=== PATIENT | female | born 1930 | race Caucasian/White ===

== ENCOUNTER 2017-03-26 19:26 | Inpatient (IN) ==
[2017-03-26] MEDS ORDERED: DILTIAZEM 50 MG/10 ML VIAL IV STA (19:49)
[2017-03-26] MEDS ORDERED: ASPIRIN 325 MG TABLET PO STA (19:49)
[2017-03-26 19:56] LABS: Basophils # 0.1 10*3/uL (0.0-0.2); Basophils % 0.8 % (0.0-0.8); Eosinophils # 0.1 10*3/uL (0.0-0.87); Eosinophils % 0.6 % (0.00-10.9); Hematocrit 44.4 VOL% (35.7-47.0); Immature Granulocytes % 1.2 %; Immature Granulocytes Absolute 0.13 #; Lymphocytes # 1.8 10*3/uL (1.4-4.0); Lymphocytes % 17.5 % (21.3-54.2); Mean Corpuscular HGB Conc 33.8 GM/DL (32-36); Mean Corpuscular Hemoglobin 29 PG (27-34); Mean Corpuscular Volume 85.7 FL (87-102); Mean Platelet Volume 9.6 FL (9.6-12.0); Monocytes # 0.7 10*3/uL (0.11-0.8); Monocytes % 6.3 % (1.7-12.7); Neutrophils # 7.7 10*3/uL (1.4-7.4); Neutrophils % 73.6 % (38.7-73.9); Platelet Count 382 T/CUMM (130-400); Red Blood Count 5.18 MC/CUMM (3.8-5.5); Red Cell Distribution Width 14.4 % (9.3-17.3); White Blood Count 10.5 T/CUMM (4-12)
[2017-03-26] MEDS ORDERED: DILTIAZEM INJ 100 MG in SODIUM CHLORIDE 0.9% 100 ML IV SCH (20:00)
[2017-03-26 20:01] LABS: Apearance,Urine CLEAR (Clear); Bilirubin,Urine Negative (Negative); Blood, Urine Small mg/dL (Negative); Glucose,Urine (UA) Negative (Negative); Ketones,Urine Negative (Negative); Mucus,Urine Occasional /LPF (Occasional); Nitrite,Urine Negative (Negative); Protein,Urine 100 MG/DL; RBC,Urine 4 /HPF (0-4); Squamous Epithelial Cell,Urine Occasional /HPF (0-10); Urine Color Colorless (Yellow); Urine Specific Gravity 1.004 (1.001-1.035); Urine Urobilinogen < 2.0 EU/DL (0.2-1.0); WBC,Urine 2 /HPF (0-6)
[2017-03-26 20:04] LABS: PT Patient Result 10.2 SECS
[2017-03-26 20:08] LABS: Barbiturates Screen,Urine Negative (Negative); Benzodiazepines Screen,Urine Negative (Negative); Cannabinoid Screen,Urine Negative (Negative); Opiate Screen,Urine Negative (Negative); Phencyclidine Screen,Urine Negative (Negative)
[2017-03-26] MEDS ORDERED: SODIUM CHLORIDE 0.9% 100 ML IV ONE (20:16)
[2017-03-26] MEDS ORDERED: ASPIRIN 325 MG TABLET ONE (20:16)
[2017-03-26] MEDS ORDERED: DILTIAZEM 100 MG VIAL.ADD IV ONE (20:16)
[2017-03-26] MEDS ORDERED: DILTIAZEM 50 MG/10 ML VIAL IV ONE (20:17)
[2017-03-26 20:24] LABS: Alanine Aminotransferase 25 U/L (13-56); Albumin 3.8 G/DL (3.4-5.0); Alkaline Phosphatase 98 U/L (45-117); Aspartate Amino Transferase 16 U/L (0-37); Bilirubin,Total < 0.39 MG/DL (0.2-1.0); Blood Urea Nitrogen 28 MG/DL (7-18); Glucose 130 MG/DL (74-106); Potassium 3.5 MMOL/L (3.5-5.1); Sodium 136 MMOL/L (136-145); Total Protein 6.7 G/DL (6.4-8.3)
[2017-03-26 20:29] LABS: Troponin I Only 0.056 NG/ML (0.00-0.045)
[2017-03-26 20:30] LABS: Free T4 (Free Thyroxine) 1.13 NG/DL (0.76-1.46); Magnesium 2.3 MG/DL (1.8-2.4)
--- NOTE | 2017-03-26 20:45 | XRay Report ---
Exam: XR chest 1V portable Indication: Shortness of breath Comparison study: None Findings: The cardiac silhouette is mildly enlarged. Mediastinal contours otherwise appear within normal limits. There is no focal consolidation, pneumothorax or pleural effusion identified. Impression: Mild cardiomegaly. Otherwise, no active disease. PROCEDURE INTERPRETED AT [facility] DEPARTMENT OF RADIOLOGY Final Report Signed by: Alfredo Valladares
--- NOTE | 2017-03-26 21:16 | Emergency Department Note ---
Keyonna Smallwood Emily, am scribing for, and in the presence of, Wale Horne MD 20: 00. Ozzie Smallwood Charles R, MD, personally performed the services described in this documentation, ascribed by Essence Newby in my presence, and it is both accurate and complete . Arrival - Arrival Chief Complaint: Arrhythmia/Palpitations ED Nursing Triage Note: Patient to ED via EMS coming from home with c/o "heart racing" Patient with hx of Afib. EMS reported patient has been in A fib since they picked her up. Patient was SOB along with the Afib. Patient denies any pain at arrival and is in A fib at 123 on monitor. Mode of Arrival: Stretcher Limitations: No Limitations Source: Patient Time Seen by Provider: 03/26/17 19:37 - History of Present Illness HPI Narrative: Pt is a 86 y/o female who came to ED with c/o racing palpitations that started a few hours ago. Pt states "my heart tried leaving me" and does "feel heavy and is hurting." Pt reports taking Lasix, in which had an output of 1000cc in ED. Pt has not seen a provider in a few years, last visit was for a back surgery. Pt was seeing Dr. Ochoa two years ago in clinic for Afib but not followed up since. Pt has associated sx of SOB. Pt reports taking a blood thinners, but cannot remember the name. Onset (ago): hour(s) Consistency: constant Severity: moderate Severity scale (1-10): 6 Quality: aching, other (racing) Date of Last Menstrual Period: menopause Allergies/Adverse Reactions: Allergies Allergy/AdvReac Type Severity Reaction Status Date / Time latex Allergy Unknown/Unable Verified 03/26/17 19:32 to obtain morphine Allergy Unknown/Unable Verified 03/26/17 19:32 to obtain Review of System - Review of System 12 point system: reviewed and no additional remarkable complaints except as stated - Review of System Constitutional: Absent: diaphoresis, fever, weakness Respiratory: Present: respiratory distress (SOB). Absent: wheezing Cardiovascular: Present: palpitations. Absent: syncope Gastrointestinal: Absent: abdominal pain, nausea, vomiting Musculoskeletal: Absent: arm pain, back pain, leg pain, neck pain Skin: Absent: rash Neurological: Absent: headache Medical,Surgical,& Family Hx - Medical History Cardio: History of: Hypertension, Cardiovascular Problems (patient states she has "heart problems" but does not know exactly what) Musculoskeletal: History of: Back/Neck Problems (2 back sx) - Social History Smoking Status: Never smoker Frequency of Alcohol Use: None Type of Drug Use: None Exam Vital Signs: Vital Signs Temperature 97.3 F L 03/26/17 19:27 Pulse Rate 123 H 03/26/17 19:27 Respiratory Rate 20 03/26/17 19:27 Blood Pressure 189/116 03/26/17 19:27 O2 Sat by Pulse Oximetry 97 03/26/17 19:27 - General General appearance: alert, in no apparent distress, obese - Head Head exam: Present: atraumatic, normocephalic - Eye Eye exam: Present: PERRL, EOMI - ENT ENT exam: Present: mucous membranes moist. Absent: mucous membranes dry - Neck Neck exam: Present: full ROM. Absent: tenderness - Chest Chest inspection: Present: symmetric chest wall rise. Absent: tenderness - Respiratory Respiratory exam: Present: normal lung sounds bilaterally. Absent: accessory muscle use, rales, respiratory distress, rhonchi, wheezes - Cardiovascular Cardiovascular exam: Present: tachycardia, irregular rhythm - Abdominal Exam Abdominal exam: Present: soft. Absent: distention, tenderness, guarding - Extremities Exam Extremities exam: Present: full ROM, pedal edema (+1). Absent: tenderness - Neurological Exam Neurological exam: Present: alert, oriented X3, CN II-XII intact. Absent: motor sensory deficit - Psychiatric Psychiatric exam: Present: normal affect, normal mood - Skin Skin exam: Present: warm, dry, other (varicose veins) Course - Consultations Consultation #1: Hospitalist will admit patient Time: 21:13 Results - Labs CBC & BMP: 03/26/17 19:43 03/26/17 19:43 Lab Results: I have reviewed the patients labs Labs: Laboratory Tests 03/26/17 19:43 MCV 85.7 L Lymph % (Auto) 17.5 L Neut # (Auto) 7.7 H Laboratory Tests 03/26/17 19:57 Urine Color Colorless Urine Appearance Clear Urine pH 7.0 Ur Specific Wolf 1.004 Urine Protein 100 Urine Blood Small Urine Urobilinogen < 2.0 H Urine RBC 4 Urine WBC 2 Ur Squamous Epith Cells Occasional Urine Mucus Occasional Laboratory Tests 03/26/17 03/26/17 19:43 19:43 BUN 28 H BUN/Creatinine Ratio 28.00 H Glucose 130 H Troponin I 0.056 H Digoxin 0.10 L - Diagnostic Findings Procedure: Chest x-ray: report reviewed by me (Mild cardiomegaly. Otherwise, no active disease.) Disposition Clinical Impression: Palpitations, Atrial fibrillation, Uncontrolled hypertension, Elevated troponin Case discussed with: patient Disposition: Still a Patient Condition: Guarded Time of Disposition: 21:16
[2017-03-26] MEDS ORDERED: ACETAMINOPHEN 325 MG TABLET PO PRN (22:09)
[2017-03-26] MEDS ORDERED: ONDANSETRON 4 MG/2 ML VIAL IV PRN (22:09)
[2017-03-26] MEDS ORDERED: ZALEPLON 5 MG CAPSULE PO PRN (22:09)
--- NOTE | 2017-03-26 22:19 | Hospitalist History & Physical ---
Assessment and Plan (1) Palpitations Status: Acute Current Visit: Yes (2) Atrial fibrillation Status: Acute Current Visit: Yes (3) Uncontrolled hypertension Status: Acute Current Visit: Yes (4) Elevated troponin Status: Acute Assessment and plan: We will admit patient our service. Patient will be placed on telemetry. Once her home meds are verified we will continue those as appropriate. She was given some diltiazem which immediately dropped her heart rate fairly quickly. We will watch her blood pressure through the night. Her family supposed to call in her medications to us. I have instructed in the orders for [facility]. I have given her some Neurontin and Requip tonight because she is very concerned about not receiving those medications. Going to give her some potassium. She was her son reports that she has had rhythm problems when her potassium was low is at 3.5 would like to see it at the 4. Current Visit: Yes History of Present Illness Chief complaint: Chest pain and heart racing History of present illness: Ms. Castañeda is a 86 year old female with history of neuropathy, atrial fibrillation, kidney cyst, hypertension and asthma who is her [facility] state [facility] Patient inhaled her Advair Diskus and felt fine after that. She did not felt her heart racing. She felt an achy sensation in her left arm. She felt a heavy sensation on her chest or shortness of breath. Patient denies diaphoresis. She came up to our hospital for further evaluation. Allergies Allergy/AdvReac Type Severity Reaction Status Date / Time latex Allergy Unknown/Unable Verified 03/26/17 19:32 to obtain morphine Allergy Unknown/Unable Verified 03/26/17 19:32 to obtain Medical,Surgical,& Family Hx - Medical History Cardio: History of: Hypertension, Cardiovascular Problems (patient states she has "heart problems" but does not know exactly what) Musculoskeletal: History of: Back/Neck Problems (2 back sx) - Surgical History Orthopedic Surgeries: Surgical HX of;: Orthopedic Surgery - Family History Family History: Reports;: Family Cancer Additional Family History: Brain tumor - Social History Smoking Status: Never smoker Frequency of Alcohol Use: None Type of Drug Use: None 12 point system: reviewed and no additional remarkable complaints except as stated Exam - Constitutional Vitals: Period Temp Pulse Resp BP Sys/Coffman Pulse Ox Last 24 Hr 97.3 F-97.3 F 123-123 20-20 189-189/116-116 97 - General General appearance: alert, in no apparent distress, obese - Head Head exam: Present: atraumatic, normocephalic - Eye Eye exam: Present: PERRL, EOMI - ENT ENT exam: Present: mucous membranes moist - Neck Neck exam: Present: full ROM. Absent: tenderness - Chest Chest inspection: Present: symmetric chest wall rise. - Respiratory Respiratory exam: Present: normal lung sounds bilaterally - Cardiovascular Cardiovascular exam: Present: , irregular rhythm - Abdominal Exam Abdominal exam: Present: soft. Positive bowel sounds - Extremities Exam Extremities exam: Present: full ROM, pedal edema (+1). Absent: tenderness - Neurological Exam Neurological exam: Present: alert, oriented X3, CN II-XII intact. Absent: motor sensory deficit - Psychiatric Psychiatric exam: Present: normal affect, normal mood - Skin Skin exam: Present: warm, dry, other (varicose veins) Results - Labs CBC & BMP: 03/26/17 19:43 03/26/17 19:43
[2017-03-26] MEDS ORDERED: ENOXAPARIN 40 MG/0.4 ML SYRINGE SUBCUT SCH (22:30)
[2017-03-26] MEDS ORDERED: rOPINIRole 1 MG TABLET PO SCH (22:30)
[2017-03-27] MEDS ORDERED: POTASSIUM CHLORIDE 20 MEQ TABLET PO ONE (00:59)
[2017-03-27] MEDS ORDERED: POTASSIUM CHLORIDE 10 MEQ TABLET PO ONE (00:59)
[2017-03-27] MEDS: GABAPENTIN 300 MG CAPSULE PO SCH ×2 (01:16→09:42)
[2017-03-27] MEDS: amLODIPine 5 MG TABLET PO SCH ×2 (02:09→09:42)
[2017-03-27 05:12] LABS: Basophils # 0.1 10*3/uL (0.0-0.2); Basophils % 0.4 % (0.0-0.8); Eosinophils % 0.1 % (0.00-10.9); Hematocrit 41.5 VOL% (35.7-47.0); Hemoglobin 13.7 GM/DL (12.0-16.0); Immature Granulocytes % 1.1 %; Immature Granulocytes Absolute 0.13 #; Lymphocytes # 2.5 10*3/uL (1.4-4.0); Lymphocytes % 21.3 % (21.3-54.2); Mean Corpuscular Hemoglobin 29 PG (27-34); Mean Corpuscular Volume 86.5 FL (87-102); Mean Platelet Volume 10.2 FL (9.6-12.0); Monocytes # 0.8 10*3/uL (0.11-0.8); Monocytes % 6.4 % (1.7-12.7); Neutrophils # 8.4 10*3/uL (1.4-7.4); Neutrophils % 70.7 % (38.7-73.9); Platelet Count 378 T/CUMM (130-400); Red Cell Distribution Width 14.3 % (9.3-17.3); White Blood Count 11.8 T/CUMM (4-12)
[2017-03-27 05:53] LABS: CKMB % 3.5 %
[2017-03-27 05:54] LABS: Albumin 3.4 G/DL (3.4-5.0); Bilirubin,Total 0.8 MG/DL (0.2-1.0); Calcium 8.8 MG/DL (8.5-10.1); Osmolality,Calculated 279.5 MOS/KG (273-304); Potassium 4.5 MMOL/L (3.5-5.1)
[2017-03-27 05:55] LABS: Troponin I Only 0.668 NG/ML (0.00-0.045)
--- NOTE | 2017-03-27 09:33 | EKG Report ---
Stationary ECG Study [facility] ER Test Date: 03/26/2017 7:34:01 PM Pat Name: MICHEL ESPINOZA Department: Room: 273 Gender: F Regulatory Affairs Manager: : 1930 Requested by: Wale Kidd Order Number: [id number] Reading MD: KATHARINE TOBIAS Intervals [place] Rate: 112 P: 999 IA: 0 QRS: 158 QRSD: 95 T: 167 QT: 319 QTc: 386 Interpretive Statements ATRIAL FIBRILLATION WITH RAPID VENTRICULAR RESPONSE POSSIBLE RIGHT VENTRICULAR HYPERTROPHY LATERAL MYOCARDIAL INFARCTION, OF INDETERMINATE AGE Electronically Signed On 03-28-17 12:52:33 CDT by KATHARINE TOBIAS [email or web address]
--- NOTE | 2017-03-27 09:34 | EKG Report ---
Stationary ECG Study [facility] ER Test Date: 03/26/2017 10:01:33 PM Pat Name: MICHEL ESPINOZA Department: Room: 273 Gender: F Head Scorer: : 1930 Requested by: Wale Kidd Order Number: [id number] MD: KATHARINE TOBIAS Intervals [place] Rate: 102 P: 999 FL: 0 QRS: 6 QRSD: 93 T: 2 QT: 329 QTc: 388 Interpretive Statements ATRIAL FIBRILLATION WITH RAPID VENTRICULAR RESPONSE MODERATE ST DEPRESSION Electronically Signed On 03-28-17 12:52:48 CDT by KATHARINE TOBIAS [email or web address]
[2017-03-27] MEDS: ASPIRIN EC 325 MG TABLET PO SCH (09:42)
[2017-03-27] MEDS: PANTOPRAZOLE 40 MG TABLET PO SCH (09:42)
[2017-03-27] MEDS ORDERED: tiZANidine 4 MG TABLET PO PRN (09:53)
[2017-03-27] MEDS ORDERED: oxyCODONE/ACETAMINOPHEN 5-325 MG TABLET PO PRN (09:53)
--- NOTE | 2017-03-27 10:59 | Cardiology Consult Note ---
Assessment and Plan - Time spent with patient Time spent with patient: Greater than 30 minutes (1) Advanced age Status: Chronic Assessment and plan: SEE PLAN OF CARE LISTED BELOW Current Visit: Yes (2) Chronic pain Status: Chronic Assessment and plan: SEE PLAN OF CARE LISTED BELOW Current Visit: Yes (3) Fatigue Status: Chronic Assessment and plan: SEE PLAN OF CARE LISTED BELOW Current Visit: Yes (4) Bilateral carotid bruits Status: Acute Assessment and plan: SEE PLAN OF CARE LISTED BELOW Current Visit: Yes (5) Thyromegaly Status: Acute Assessment and plan: SEE PLAN OF CARE LISTED BELOW Current Visit: Yes (6) Atrial fibrillation Status: Chronic Assessment and plan: SEE PLAN OF CARE LISTED BELOW Current Visit: Yes Qualifiers: Atrial fibrillation type: paroxysmal Qualified Code(s): I48.0 - Paroxysmal atrial fibrillation (7) Uncontrolled hypertension Status: Acute Assessment and plan: SEE PLAN OF CARE LISTED BELOW Current Visit: Yes (8) Elevated troponin Status: Acute Assessment and plan: SEE PLAN OF CARE LISTED BELOW Current Visit: Yes History of Present Illness - Data of Consult Patient: known to practice within the last 3 years Consult date: 03/27/17 Requesting Physician: Nicola Platt Primary care physician: Cecil Grover - Consult Narrative Reason for consult: atrial fibrillation with RVR, elevated troponin 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 GROVER, [facility] Ms. Castañeda, [id number], followed by Dr. cota. Last clinic visit March 2016. Risk factors include: Advanced age, hypertension, hypercholesterolemia, sedentary lifestyle. History of paroxysmal atrial fibrillation, chronic pain, COPD. Last evening, around 5:30 PM, patient was using her inhaler when she began to feel her heart fluttering and beating fast. She felt dizzy, left-sided chest pressure which radiated to the left arm. She was brought to the emergency department where she was given IV diltiazem, easily getting her heart rate under control. When the heart rate was controlled, left chest pain and shoulder pain resolved. She rates the discomfort as a 7 on a scale of 1-10, currently chest pain-free. No nausea, vomiting or diaphoresis associated with the discomfort. She can identify no aggravating factors nor any alleviating factors. Denies a known history of CAD. She is not very active but can perform her activities without complaints of chest pain, heaviness or tightness. At the last clinic visit in March 2016, Dr. Ochoa recommended stress testing due to her worsening fatigue. However, she chose to not undergo said procedure. Her fatigue has not worsened but it has not improved. Troponins are elevated at 0.056, this morning 0.668. EKG does not reveal acute changes. Patient has not had heart catheterization in her past and prefers no intervention at this time. After reviewing patient's records from Dr. Ochoa's office, at the last visit, she was taking Sotalol 80 mg twice daily. However, her pharmacies has been contacted and there is no prescription for Sotalol for several years. She denies ever having been on anticoagulation and prefers not to start this if possible. She denies a history of CVA or TIA. She now uses a walker but in the past has fallen though not in the past year. She states she rarely feels her heart racing or fluttering. Of note, she did get a steroid injection in the left hip this past Monday. Also, she has been taking a topical pain medication to the left hip (she does not recall the name) which states an adverse reaction is "heart problems". At this time, I will order an echocardiogram, bilateral carotid ultrasound to evaluate bruits, thyroid ultrasound to evaluate her thyromegaly. I will continue to cycle her cardiac biomarkers. We discussed monitoring cardiac biomarkers closely and should they become dramatically elevated she may need cardiac catheterization. Again, patient prefers not to proceed if possible. In the past, patient has been at high risk for falls and I suspect this is the reason she has not been on a formal anticoagulant. She does now use a walker. FRANKIE VASC SCORE 4. If patient is agreeable, she will need formal anticoagulation. Patient's blood pressure is high this morning. She has had Norvasc 5 mg this morning. I have asked the nurse to give an additional 5 mg now and will increase Amlodipine to 10 mg daily starting tomorrow. I will further discuss with Dr. Mesa and await his recommendations. ASSESSMENT/PLAN: 1. ATRIAL FIBRILLATION WITH RVR - Currently rate controlled. I will increase her Lovenox dosing to a therapeutic dose, closely monitor her hemoglobin and hematocrit daily. She may need formal anticoagulation prior to discharge (CHADVASC SCORE 4). 2. ELEVATED TROPONIN - Continue to cycle cardiac biomarkers. Elevated troponin may be related to rapid ventricular response. 3. HYPERTENSION - Suboptimally controlled. Increasing Norvasc now. Cannot increase garrick blocking agents as her pulse is 52-56 bpm. 4. DYSLIPIDEMIA - Continue lipid-lowering agent 5. ADVANCED AGE - Continue current plan of care 6. BILATERAL CAROTID BRUITS - Carotid ultrasound 7. THYROMEGALY - Thyroid ultrasound CC: Pamela Glover MD - Home Medications and Allergies Home Medications: Home Medications Medication Instructions Recorded Confirmed Type Albuterol Sulfate [Proair 2 puff INH Q6H PRN 03/27/17 03/27/17 History Respiclick] Aspirin [Ecotrin] 81 mg PO DAILY 03/27/17 03/27/17 History Clobetasol Propionate [Clobetasol 1 applic TOP BID 03/27/17 03/27/17 History 0.05% Cream] Fluticasone/Salmeterol 250-50 1 puff INH BID 03/27/17 03/27/17 History [Advair 250-50] Furosemide 40 mg PO BID 03/27/17 03/27/17 History Gabapentin Enacarbil [Horizant] 300 mg PO BID 03/27/17 03/27/17 History Losartan [Cozaar] 100 mg PO DAILY 03/27/17 03/27/17 History Magnesium Chloride [Magnesium Dr] 64 mg PO DAILY 03/27/17 03/27/17 History Metoprolol Tartrate 50 mg PO BID 03/27/17 03/27/17 History Potassium Chloride 20 meq PO DAILY 03/27/17 03/27/17 History Tizanidine HCl 4 mg PO BID PRN 03/27/17 03/27/17 History Tolterodine Tartrate [Tolterodine] 2 mg PO BID 03/27/17 03/27/17 History Triamcinolone Acetonide 1 applic TOP BID 03/27/17 03/27/17 History [Triamcinolone 0.1% Cream] oxyCODONE/ACETAMINOPHEN 5-325 1 tablet PO DAILY PRN 03/27/17 03/27/17 History [Percocet 5-325] rOPINIRole [Requip] 1 mg PO BID 03/27/17 03/27/17 History Allergies/Adverse Reactions: Allergies Allergy/AdvReac Type Severity Reaction Status Date / Time latex Allergy Unknown/Unable Verified 03/26/17 19:32 to obtain morphine Allergy Unknown/Unable Verified 03/26/17 19:32 to obtain Review of systems: REVIEW OF SYSTEMS: See HPI - Constitutional Constitutional: Present: Fatigue. Absent: syncope, anorexia, night sweats - EENT Eyes: Absent: blurry vision, loss of vision, diplopia Ears: Absent: decreased hearing, ear pain, ear discharge - Cardiovascular Cardiovascular: Denies chest pain with exertion. Chronic dyspnea on exertion. Bilateral lower extremity edema, chronic. Occasional palpitations. Absent: chest pain with deep breath, claudication - Respiratory Respiratory: Present: LAMAR, cough. Absent: wheezing, hemoptysis, change in phlegm color - Gastrointestinal Gastrointestinal: Present: constipation. Absent: abdominal pain, hematemesis , hematochezia, melena, change in bowel habits, nausea - Genitourinary Genitourinary: Absent: difficulty urinating, dysuria, urinary hesitancy, flank pain - Musculoskeletal Musculoskeletal: Present: back pain Absent: joint swelling, muscle cramps, muscle weakness - Neurological Neurological: Present:poor gait without frequent falls. Occasional dizziness Absent: hemiparesis - Psychiatric Psychiatric: Absent: anxiety, depression, difficulty concentrating - Endocrine Endocrine: Present: fatigue. Absent: cold intolerance, heat intolerance, polyuria, polyphagia, polydipsia - Hematologic/Lymphatic Hematologic/Lymphatic: Present: easy bruising. Absent: easy bleeding -Integumentary Integumentary: Absent: lesions, rashes, skin breakdown Medical,Surgical,& Family Hx - Medical History Cardio: History of: Hypertension, Cardiovascular Problems (patient states she has "heart problems" but does not know exactly what) No history of: CHF, CAD, [place] Musculoskeletal: History of: Back/Neck Problems (2 back sx) - Surgical History Orthopedic Surgeries: Surgical HX of;: Orthopedic Surgery - Family History Family History: Reports;: Family Cancer - Social History Smoking Status: Never smoker Have you smoked in the last 12 months: No Frequency of Alcohol Use: None Type of Drug Use: None Marital Status: Lives With:: Alone Functional capacity: uses cane/walker Physical Examination Vital Signs Temp Pulse Resp BP Pulse Ox 97.3 F L 123 H 20 189/116 97 03/26/17 19:27 03/26/17 19:27 03/26/17 19:27 03/26/17 19:27 03/26/17 19:27 General: [Appears well with no apparent distress.] [Pleasant and cooperative. ] [Appears comfortable.] HEENT: [PERRL, normocephalic, atraumatic. Mucous membranes moist. No jaundice noted. Conjunctiva moist and clear, sclerae anicteric] Neck: No JVD/HJR, no thyromegaly or lymphadenopathy noted. Bilateral carotid bruits. Bilobular enlargement of the thyroid. Cardiac: [Irregularly irregular rhythm, slow rate.] [No murmur rub or gallop.] Lungs: [Clear to auscultation without accessory muscle use to assist the respiratory pattern.] Not requiring oxygen Abdomen: Soft, bowel sounds normoactive. Nontender and nondistended. No abdominal bruit or thrill noted. No masses noted. Musculoskeletal: No fluid collection. Decreased range of motion is noted. Extremities: No clubbing, cyanosis noted. [Trace bilateral lower extremity edema noted.] Upper extremity pulses 2+. Lower extremity pulses 2+. Capillary refill less than 3 seconds. Skin: No unusual lesions or rashes. No skin breakdown appreciated. Neuro: Awake, alert and oriented 3. Moves all extremities well without hemiparesis or paralysis. No essential tremor is appreciated. Result/EKG - Labs CBC & BMP: 03/27/17 04:20 03/27/17 04:20 Lab Results: I have reviewed the past 24 hour labs Labs: Laboratory Results - last 24 hr 03/26/17 03/26/17 03/26/17 19:43 19:43 19:43 WBC RBC Hgb Hct MCV MCH MCHC RDW Plt Count MPV Neut % (Auto) Lymph % (Auto) [place] % (Auto) Eos % (Auto) Baso % (Auto) Neut # (Auto) Lymph # (Auto) [place] # (Auto) Eos # (Auto) Baso # (Auto) Immature Gran % Nucleated RBC % Immature Gran # Nucleated RBCs # INR 1.0 PT Patient/Control Mix 10.2 Sodium Potassium Chloride Carbon Dioxide Anion Gap BUN Creatinine GFR Calculation BUN/Creatinine Ratio Glucose Calculated Osmolality Calcium Magnesium 2.3 Total Bilirubin AST ALT Alkaline Phosphatase Total Creatine Kinase CK-MB (CK-2) CK and CKMB Interp Troponin I Total Protein Albumin Globulin Albumin/Globulin Ratio Free T4 1.13 TSH 3rd Generation Urine Color Urine Appearance Urine pH Ur Specific [place] Urine Protein Urine Glucose (UA) Urine Ketones Urine Blood Urine Nitrate Urine Bilirubin Urine Urobilinogen Urine Leukocytes Urine RBC Urine WBC Ur Squamous Epith Cells Urine Mucus Ur Culture Indicated? Digoxin 0.10 L Urine Opiates Screen Ur Barbiturates Screen Ur Phencyclidine Scrn U Amphetamine/Methamph U Benzodiazepines Scrn U Cocaine Metab Screen U Cannabinoids Screen 03/26/17 03/26/17 03/26/17 19:43 19:43 19:57 WBC 10.5 RBC 5.18 Hgb 15.0 Hct 44.4 MCV 85.7 L MCH 29 MCHC 33.8 RDW 14.4 Plt Count 382 MPV 9.6 Neut % (Auto) 73.6 Lymph % (Auto) 17.5 L [place] % (Auto) 6.3 Eos % (Auto) 0.6 Baso % (Auto) 0.8 Neut # (Auto) 7.7 H Lymph # (Auto) 1.8 [place] # (Auto) 0.7 Eos # (Auto) 0.1 Baso # (Auto) 0.1 Immature Gran % 1.2 Nucleated RBC % 0.0 Immature Gran # 0.13 Nucleated RBCs # 0.00 INR PT Patient/Control Mix Sodium 136 Potassium 3.5 Chloride 98 Carbon Dioxide 28 Anion Gap 13.5 BUN 28 H Creatinine 1.00 GFR Calculation 56 BUN/Creatinine Ratio 28.00 H Glucose 130 H Calculated Osmolality 279.0 Calcium 9.0 Magnesium Total Bilirubin < 0.39 AST 16 ALT 25 Alkaline Phosphatase 98 Total Creatine Kinase CK-MB (CK-2) CK and CKMB Interp Troponin I 0.056 H Total Protein 6.7 Albumin 3.8 Globulin 2.9 Albumin/Globulin Ratio 1.3 Free T4 TSH 3rd Generation 2.440 Urine Color Colorless Urine Appearance Clear Urine pH 7.0 Ur Specific [place] 1.004 Urine Protein 100 Urine Glucose (UA) Negative Urine Ketones Negative Urine Blood Small Urine Nitrate Negative Urine Bilirubin Negative Urine Urobilinogen < 2.0 H Urine Leukocytes Negative Urine RBC 4 Urine WBC 2 Ur Squamous Epith Cells Occasional Urine Mucus Occasional Ur Culture Indicated? Not indicated Digoxin Urine Opiates Screen Ur Barbiturates Screen Ur Phencyclidine Scrn U Amphetamine/Methamph U Benzodiazepines Scrn U Cocaine Metab Screen U Cannabinoids Screen 03/26/17 03/27/17 03/27/17 19:57 04:20 04:20 WBC 11.8 RBC 4.80 Hgb 13.7 Hct 41.5 MCV 86.5 L MCH 29 MCHC 33.0 RDW 14.3 Plt Count 378 MPV 10.2 Neut % (Auto) 70.7 Lymph % (Auto) 21.3 [place] % (Auto) 6.4 Eos % (Auto) 0.1 Baso % (Auto) 0.4 Neut # (Auto) 8.4 H Lymph # (Auto) 2.5 [place] # (Auto) 0.8 Eos # (Auto) 0.0 Baso # (Auto) 0.1 Immature Gran % 1.1 Nucleated RBC % 0.0 Immature Gran # 0.13 Nucleated RBCs # 0.00 INR PT Patient/Control Mix Sodium Potassium Chloride Carbon Dioxide Anion Gap BUN Creatinine GFR Calculation BUN/Creatinine Ratio Glucose Calculated Osmolality Calcium Magnesium Total Bilirubin AST ALT Alkaline Phosphatase Total Creatine Kinase 167 CK-MB (CK-2) 5.9 H CK and CKMB Interp 3.5 Troponin I 0.668 H D Total Protein Albumin Globulin Albumin/Globulin Ratio Free T4 TSH 3rd Generation Urine Color Urine Appearance Urine pH Ur Specific [place] Urine Protein Urine Glucose (UA) Urine Ketones Urine Blood Urine Nitrate Urine Bilirubin Urine Urobilinogen Urine Leukocytes Urine RBC Urine WBC Ur Squamous Epith Cells Urine Mucus Ur Culture Indicated? Digoxin Urine Opiates Screen Negative Ur Barbiturates Screen Negative Ur Phencyclidine Scrn Negative U Amphetamine/Methamph Negative U Benzodiazepines Scrn Negative U Cocaine Metab Screen Negative U Cannabinoids Screen Negative 03/27/17 04:20 WBC RBC Hgb Hct MCV MCH MCHC RDW Plt Count MPV Neut % (Auto) Lymph % (Auto) [place] % (Auto) Eos % (Auto) Baso % (Auto) Neut # (Auto) Lymph # (Auto) [place] # (Auto) Eos # (Auto) Baso # (Auto) Immature Gran % Nucleated RBC % Immature Gran # Nucleated RBCs # INR PT Patient/Control Mix Sodium 139 Potassium 4.5 Chloride 102 Carbon Dioxide 29 Anion Gap 12.5 BUN 22 H Creatinine 0.90 GFR Calculation 63 BUN/Creatinine Ratio 24.00 H Glucose 103 Calculated Osmolality 279.5 Calcium 8.8 Magnesium Total Bilirubin 0.80 AST 21 ALT 22 Alkaline Phosphatase 79 Total Creatine Kinase CK-MB (CK-2) CK and CKMB Interp Troponin I Total Protein 6.0 L Albumin 3.4 Globulin 2.6 Albumin/Globulin Ratio 1.3 Free T4 TSH 3rd Generation Urine Color Urine Appearance Urine pH Ur Specific [place] Urine Protein Urine Glucose (UA) Urine Ketones Urine Blood Urine Nitrate Urine Bilirubin Urine Urobilinogen Urine Leukocytes Urine RBC Urine WBC Ur Squamous Epith Cells Urine Mucus Ur Culture Indicated? Digoxin Urine Opiates Screen Ur Barbiturates Screen Ur Phencyclidine Scrn U Amphetamine/Methamph U Benzodiazepines Scrn U Cocaine Metab Screen U Cannabinoids Screen - Diagnostic Findings Procedure: Chest x-ray: report reviewed by me - EKG EKG results: interpreted by me EKG shows: atrial fibrillation
[2017-03-27] MEDS ORDERED: amLODIPine 5 MG TABLET PO ONE (11:02)
[2017-03-27] MEDS: METOPROLOL TARTRATE 50 MG TABLET PO SCH ×2 (11:19→21:06)
[2017-03-27] MEDS: TOLTERODINE 2 MG TABLET PO SCH ×2 (11:19→21:05)
[2017-03-27] MEDS: FUROSEMIDE 40 MG TABLET PO SCH ×2 (11:19→21:06)
[2017-03-27] MEDS: LOSARTAN 50 MG TABLET PO SCH (11:19)
[2017-03-27 12:21] LABS: CKMB % 3.5 %
[2017-03-27 12:22] LABS: Troponin I Only 0.53 NG/ML (0.00-0.045)
[2017-03-27] MEDS ORDERED: ENOXAPARIN 40 MG/0.4 ML SYRINGE SUBCUT ONE (12:32)
--- NOTE | 2017-03-27 12:59 | Hospitalist Progress Note ---
Assessment and Plan (1) Atrial fibrillation Status: Chronic Assessment and plan: 1)a fib- she has had this in the past, not on anticoagulation. Rate better now in the 50-60 range, sinus bradycardia. Suspect elevation in troponin is due to rapid afib on admission, and the level is coming down from peak of 0.67. echo pending. Lovenox increased to therapeutic levels by cardiology. 2)restless leg syndrome- takes mirapex BID and also Horizant (neurontin with an analgesic, extended release) at home. She must take her own Horizant becasue our pharmacy does not keep it in stock. 3)uncontrolled HTN- restarted her home meds this morning- she usually takes them at night and did not get a dose last night. 4)h/o hypokalemia- she is unclear how much potassium she should take. 5)asthma- on advair. nebs. Current Visit: Yes Qualifiers: Atrial fibrillation type: paroxysmal Qualified Code(s): I48.0 - Paroxysmal atrial fibrillation (2) Uncontrolled hypertension Status: Acute Current Visit: Yes (3) Elevated troponin Status: Acute Current Visit: Yes (4) Advanced age Status: Chronic Current Visit: Yes (5) Bilateral carotid bruits Status: Acute Current Visit: Yes (6) Thyromegaly Status: Acute Current Visit: Yes Hospitalist: Subjective Interval history: Mrs Castañeda is feeling better this morning. The rate is controlled. She has a history of this but has not been anticoagulated as an outpatient other than aspirin. I have restarted her BP meds this morning when I reconciled them. echo, carotid and thyroid US pending. Exam - Constitutional Vitals: Period Temp Pulse Resp BP Sys/Coffman Pulse Ox Last 24 Hr 97.1 F-97.8 F 52-123 18-20 156-206/68-116 96-98 General appearance: no acute distress (lying flat, breathing comfortably.), over weight - Eye Eye exam: Present: EOMI. Absent: scleral icterus - Respiratory Respiratory exam: Present: clear to auscultation bilaterally - Cardiovascular Cardiovascular exam: Present: regular rate and rhythm - GI/Abdominal GI/Abdominal exam: Present: normal bowel sounds, soft. Absent: tenderness - Extremities Exam Extremities exam: Absent: edema - Neurological Exam Neurological exam: Present: alert, oriented X3 Results - Labs CBC & BMP: 03/27/17 04:20 03/27/17 04:20 Lab Results: I have reviewed the past 24 hour labs
[2017-03-27] MEDS ORDERED: ALBUTEROL 2.5 MG/3 ML NEB RESP TX PRN (13:00)
--- NOTE | 2017-03-27 15:09 | Ultrasound Report ---
US carotid duplex BI Indication: Bilateral carotid bruits. Comparison: None. Technique: Multiple longitudinal and transverse real-time sonographic images of the bilateral carotid arterial systems are obtained with grayscale, spectral, and color Doppler analysis. Findings: Peak systolic velocities within the right CCA, proximal ICA, and distal ICA are 48, 44, and 57 cm/s respectively. Peak systolic velocities within the left CCA, proximal ICA, and distal ICA are 61, 39, and 53 cm/s respectively. ICA/CCA ratios on the right and left are 1.2 and 0.9 respectively. Antegrade flow demonstrated within the bilateral vertebral arteries. Grayscale imaging demonstrates mild to moderate bilateral atherosclerotic plaque, greater on the left. IMPRESSION: No convincing sonographic evidence of significant (50% or greater) narrowing of either cervical internal carotid artery. Indirect NASCET criteria utilized. PROCEDURE INTERPRETED AT [facility] DEPARTMENT OF RADIOLOGY Final Report Signed by: Dr Kenneth Laird
--- NOTE | 2017-03-27 15:26 | Ultrasound Report ---
History is bilobular thyroid enlargement The right lobe is 4.1 x 1.5 x 2.0 cm Left lobe is 4.3 x 1.5 x 1.7 cm There is extensive diffuse thyroid heterogeneity with multiple more focal bilateral solid and complex cystic nodules measuring up to 1.0 cm on the right 1.1 cm on the left. No one area is more suspicious than any other and this time The isthmus measures up to 7 mm with small areas of nodularity Impression: Multinodular goiter The Ultrasound images were captured and stored. PROCEDURE INTERPRETED AT [facility] DEPARTMENT OF RADIOLOGY Final Report Signed by: Dr. Bia Mcgill
--- NOTE | 2017-03-27 18:05 | ECHO Report ---
Jerica Castañeda Exam Date: 03/27/2017 12:36 Referring Physician: Technologist: Kristie Wilhelm RDCS Age: 86 Ht (in): 64 Wt (lb): 194 Gender: F Exam Location: [facility] Echo Indications: Chest pain, unspecified, Palpitations, Atrial fibrillation, Essential (primary) hypertension, Elevated troponin BP: 156 / 72 HR: 55 Rhythm: Sinus Technical Quality: IMPRESSIONS Mild to moderate left ventricular hypertrophy. Left ventricular ejection fraction is estimated at 65 %. Moderately increased left atrial size. Mild mitral annular and leaflet calcification with mild mitral regurgitation. Mild , Mean gradient 10 mmHg, JASMINA 3.2 cm. Trace to mild tricuspid valve regurgitation. Tricuspid regurgitation velocities suggest a PAP of 45 mmHg. MEASUREMENTS (Male / Female) Normal Values 2D ECHO LV Diastolic Diameter PLAX 3.7 cm 4.2 - 5.9 / 3.9 - 5.3 cm LV Systolic Diameter PLAX 2.0 cm LV Fractional Shortening PLAX 46.6 % IVS Diastolic Thickness 1.3 cm 0.6 - 1.0 / 0.6 - 0.9 cm LVPW Diastolic Thickness 1.4 cm 0.6 - 1.0 / 0.6 - 0.9 cm RV Internal Dim ED PLAX 2.5 cm Aortic Root Diameter 3.5 cm LA Systolic Diameter LX 4.8 cm 3.0 - 4.0 / 2.7 - 3.8 cm DOPPLER TR Peak Velocity 295.0 cm/s TR Peak Gradient 34.8 mmHg FINDINGS Left Ventricle Normal left ventricular cavity size. Mild to moderate left ventricular hypertrophy. Left ventricular ejection fraction is estimated at 65 %. Right Ventricle The right ventricle is normal in size and function. Right Atrium The right atrium is normal in size. Left Atrium Moderately increased left atrial size. Mitral Valve Mild mitral annular and leaflet calcification with mild mitral regurgitation. Aortic Valve Mild aortic valve calcification. mild , Mean gradient 10 mmHg, JASMINA 3.2 cm. No aortic valve regurgitation. Tricuspid Valve Morphologically normal tricuspid valve. Trace to mild tricuspid valve regurgitation. Tricuspid regurgitation velocities suggest a PAP of 45 mmHg. Pulmonic Valve Morphologically normal pulmonic valve without significant stenosis. There is no pulmonic regurgitation. Pericardium Normal pericardium without effusion. Aorta Normal ascending aorta dimension. Alex Mesa MD (Electronically Signed) Final Date: 27 March 2017 18:03
[2017-03-27] MEDS: hydrALAZINE 20 MG/1 ML VIAL IV PRN (18:41)
[2017-03-27 20:21] LABS: CKMB % 3.1 %
[2017-03-27 20:26] LABS: Troponin I Only 0.378 NG/ML (0.00-0.045)
[2017-03-27] MEDS: FLUTICASONE/SALMETEROL 250-50 DISKUS 14 DOSE INH SCH (21:04)
[2017-03-27] MEDS: HORIZANT PO SCH (21:05)
[2017-03-27] MEDS: rOPINIRole 1 MG TABLET PO SCH (21:06)
[2017-03-28] MEDS ORDERED: ENOXAPARIN 100 MG/ML SYRINGE SUBCUT SCH (01:00)
[2017-03-28] MEDS: hydrALAZINE 20 MG/1 ML VIAL IV PRN (04:16)
[2017-03-28 05:23] LABS: Basophils # 0.1 10*3/uL (0.0-0.2); Basophils % 0.6 % (0.0-0.8); Eosinophils # 0.1 10*3/uL (0.0-0.87); Eosinophils % 0.5 % (0.00-10.9); Hematocrit 40.7 VOL% (35.7-47.0); Hemoglobin 13.5 GM/DL (12.0-16.0); Immature Granulocytes % 1.1 %; Immature Granulocytes Absolute 0.12 #; Lymphocytes # 2.5 10*3/uL (1.4-4.0); Lymphocytes % 22.4 % (21.3-54.2); Mean Corpuscular HGB Conc 33.2 GM/DL (32-36); Mean Corpuscular Hemoglobin 29 PG (27-34); Mean Corpuscular Volume 86.4 FL (87-102); Mean Platelet Volume 9.7 FL (9.6-12.0); Monocytes # 0.8 10*3/uL (0.11-0.8); Monocytes % 7.1 % (1.7-12.7); Neutrophils # 7.5 10*3/uL (1.4-7.4); Neutrophils % 68.3 % (38.7-73.9); Platelet Count 364 T/CUMM (130-400); Red Blood Count 4.71 MC/CUMM (3.8-5.5); Red Cell Distribution Width 14.5 % (9.3-17.3)
[2017-03-28 06:13] LABS: Calcium 9.1 MG/DL (8.5-10.1); Magnesium 2.5 MG/DL (1.8-2.4); Potassium 4.2 MMOL/L (3.5-5.1); Troponin I Only 0.314 NG/ML (0.00-0.045)
[2017-03-28] MEDS: PANTOPRAZOLE 40 MG TABLET PO SCH (08:56)
[2017-03-28] MEDS: LOSARTAN 50 MG TABLET PO SCH (08:56)
[2017-03-28] MEDS: ASPIRIN EC 325 MG TABLET PO SCH (08:56)
[2017-03-28] MEDS: rOPINIRole 1 MG TABLET PO SCH (08:57)
[2017-03-28] MEDS: METOPROLOL TARTRATE 50 MG TABLET PO SCH (08:57)
[2017-03-28] MEDS: FUROSEMIDE 40 MG TABLET PO SCH (08:58)
[2017-03-28] MEDS: HORIZANT PO SCH (08:58)
[2017-03-28] MEDS ORDERED: POTASSIUM CHLORIDE 20 MEQ TABLET PO SCH (09:00)
[2017-03-28] MEDS ORDERED: MAGNESIUM CHLORIDE 64 MG TABLET PO SCH (09:00)
[2017-03-28] MEDS ORDERED: amLODIPine 10 MG TABLET PO SCH (09:00)
[2017-03-28] MEDS ORDERED: ASPIRIN EC 81 MG TABLET PO SCH (09:00)
[2017-03-28] MEDS: TOLTERODINE 2 MG TABLET PO SCH (09:01)
[2017-03-28] MEDS: FLUTICASONE/SALMETEROL 250-50 DISKUS 14 DOSE INH SCH (09:02)
--- NOTE | 2017-03-28 10:40 | Discharge Summary ---
<Papo Ken - Last Filed: 03/28/17 10:41> Hospital Course - Hospital Course Hospital Course: This is a very pleasant 86-year-old female that presented to the ED at [facility] on March 26, 2017 for evaluation of heart palpitations. The patient has a medical history significant for hypertension, peripheral neuropathy, asthma, renal cyst, and atrial fibrillation. The patient has a surgical history significant for multiple spinal surgeries. The patient presented to the ED via EMS from home at the time of presentation the patient reported that her heart was "racing" and left arm discomfort. In addition, she reported that her heart felt "heavy and hurting" and that she was short of breath.. The patient reports that she had been previously evaluated by a consumer marketing analyst, in 2014. At that time, she was told that she had atrial fibrillation, however she never followed up with the consumer marketing analyst since that diagnosis. During the cardiac evaluation in 2014, she was prescribed an anticoagulation agent, however she does not remember the name of it. At the time of presentation the patient was grossly hypertensive, with a blood pressure of 189/116. The patient was noted to be in atrial fibrillation with a rate of 123. At that time the patient was given Cardizem and her heart rate improved. Labs were obtained at the time of admission. Hematology panel reported her white blood cell count at 10.5, hemoglobin 15, hematocrit 44.4, and platelet count at 382. Coagulation panel is reported her INR at 1.0. Chemistry panel reported her sodium at 136, potassium 3.5, chloride at 98, carbon dioxide 28, anion gap at 13.5, BUN at 28, creatinine at 1.00, calcium at 9.0, magnesium at 2.3. Cardiac enzymes were obtained which reported a troponin at 0.056 and CK-MB at 5.9. Thyroid panel was obtained which reported a free T4 at 1.13 and TSH at 2.440 Chest x-ray was obtained which was significant for mild cardiomegaly, however no active cardiopulmonary disease. Carotid Dopplers were obtained which no convincing sonographic evidence significant narrowing of either cervical cold internal carotid artery. Thyroid ultrasound was obtained which reported a multinodular goiter. Patient was subsequently admitted to the hospitalist services for continuation of care. A cardiology consult was requested. The patient was seen and evaluated by cardiology. Her cardiac enzymes remained persistently elevated. She was advised by cardiology of the need to be further evaluated via treadmill or heart catheterization, and the patient declined. The patient has requested medical therapy. In addition the patient has also declined anticoagulation use and has requested aspirin for coagulation purposes. The patient was advised of the increased risk of cerebrovascular accident with the use of aspirin versus anticoagulation agents. The patient acknowledged the risk associated however declines the use of anticoagulants at this time. The patient's condition has improved. She has experienced no significant overnight events. We feel that she is indeed appropriate for discharge this afternoon to follow-up with her primary care physician and consumer marketing analyst as directed. Specialty Discharge - Follow Up or Referrals Follow up with: Alex Mesa MD [Physician] - (May 2017) Reid Serrano CFNP [Advanced Practice Nurse] - ([address] [facility], Mg, CBC. ) Discharge Plan - Discharge Data Disposition: Home Health Service - Discharge Medications New Apixaban [Eliquis] 2.5 mg PO BID #30 tablet Aspirin EC Tab 81 mg PO DAILY tablet Atorvastatin [Lipitor] 20 mg PO BEDTIME #30 tablet Pantoprazole Tab [Protonix Tab] 40 mg PO DAILY #30 tablet amLODIPine [Norvasc] 10 mg PO DAILY #30 tablet Continue Furosemide 40 mg PO BID Metoprolol Tartrate 50 mg PO BID Magnesium Chloride [Magnesium Dr] 64 mg PO DAILY Potassium Chloride 20 meq PO DAILY Tizanidine HCl 4 mg PO BID PRN PRN Reason: Muscle Spasm Losartan [Cozaar] 100 mg PO DAILY rOPINIRole [Requip] 1 mg PO BID Albuterol Sulfate [Proair Respiclick] 2 puff INH Q6H PRN PRN Reason: Shortness Of Breath/Wheezing Fluticasone/Salmeterol 250-50 [Advair 250-50] 1 puff INH BID Gabapentin Enacarbil [Horizant] 300 mg PO BID oxyCODONE/ACETAMINOPHEN 5-325 [Percocet 5-325] 1 tablet PO DAILY PRN PRN Reason: Pain Tolterodine Tartrate [Tolterodine] 2 mg PO BID Discontinued Triamcinolone Acetonide [Triamcinolone 0.1% Cream] 1 applic TOP BID Clobetasol Propionate [Clobetasol 0.05% Cream] 1 applic TOP BID Aspirin [Ecotrin] 81 mg PO DAILY - Follow Up or Referral Follow Up: Alex Mesa MD [Physician] - (May 2017) Redi Serrano CFNP [Advanced Practice Nurse] - (1 week at [facility]. BMP, Mg, CBC. ) - Forms/Instructions Exam - Constitutional Vitals: Period Temp Pulse Resp BP Sys/Coffman Pulse Ox Last 24 Hr 98 F-98.5 F 53-66 18-20 136-206/64-84 91-98 Discharge Results Procedures and tests throughout hospitalization: Pending Orders 03/28/17 19:15 Troponin,CKMB & Ck Total Q8H 03/29/17 04:00 BMP w/ Mg [Basic Metabolic Panel w/Mg] IN AM CBC [Comp Blood Count Auto Diff] IN AM 03/30/17 04:00 BMP w/ Mg [Basic Metabolic Panel w/Mg] IN AM CBC [Comp Blood Count Auto Diff] IN AM 03/31/17 04:00 BMP w/ Mg [Basic Metabolic Panel w/Mg] IN AM CBC [Comp Blood Count Auto Diff] IN AM Labs on day of discharge: Labs from last 24 hours 03/28/17 03/28/17 03/28/17 11:26 05:15 05:15 WBC RBC Hgb Hct MCV MCH MCHC RDW Plt Count MPV Neut % (Auto) Lymph % (Auto) [place] % (Auto) Eos % (Auto) Baso % (Auto) Neut # (Auto) Lymph # (Auto) [place] # (Auto) Eos # (Auto) Baso # (Auto) Immature Gran % Nucleated RBC % Immature Gran # Nucleated RBCs # Sodium 143 Potassium 4.2 Chloride 106 Carbon Dioxide 26 Anion Gap 15.2 H BUN 30 H Creatinine 1.00 GFR Calculation 55 BUN/Creatinine Ratio 30.00 H Glucose 99 Calculated Osmolality 290.0 Calcium 9.1 Magnesium 2.5 H Total Creatine Kinase 97 110 D CK-MB (CK-2) 3.0 3.8 H CK and CKMB Interp Troponin I 0.217 H D 0.314 H 03/28/17 03/27/17 05:15 19:41 WBC 11.0 RBC 4.71 Hgb 13.5 Hct 40.7 MCV 86.4 L MCH 29 MCHC 33.2 RDW 14.5 Plt Count 364 MPV 9.7 Neut % (Auto) 68.3 Lymph % (Auto) 22.4 [place] % (Auto) 7.1 Eos % (Auto) 0.5 Baso % (Auto) 0.6 Neut # (Auto) 7.5 H Lymph # (Auto) 2.5 [place] # (Auto) 0.8 Eos # (Auto) 0.1 Baso # (Auto) 0.1 Immature Gran % 1.1 Nucleated RBC % 0.0 Immature Gran # 0.12 Nucleated RBCs # 0.00 Sodium Potassium Chloride Carbon Dioxide Anion Gap BUN Creatinine GFR Calculation BUN/Creatinine Ratio Glucose Calculated Osmolality Calcium Magnesium Total Creatine Kinase 166 CK-MB (CK-2) 5.1 H CK and CKMB Interp 3.1 Troponin I 0.378 H D DS: Provider Date of admission: 03/26/17 22:09 Primary care physician: . No PCP Attending physician on admission: Nicola Platt MD Consults: 03/26/17 22:09 Consult to Physician [CONS] Routine Comment: Consulting Provider: Cardiology - [facility] 03/27/17 02:03 Consult to Pastoral Services [CONS] Routine Comment: Pastoral Screen: Request Home Staging Specialist Visit Discharging clinician: Papo Ken CNP <Aga Matthew - Last Filed: 03/28/17 14:42> Hospital Course - Time spent with patient Time with patient DS: Greater than 30 minutes (35 minutes) Diagnosis - Discharge Diagnosis (1) Atrial fibrillation Status: Chronic (2) Uncontrolled hypertension Status: Resolved (3) Elevated troponin Status: Acute (4) Advanced age Status: Chronic (5) Chronic pain Status: Chronic Discharge Plan - Discharge Data Condition at Discharge: Stable Discharge Diet: heart healthy Activity: other (Weigh self daily. If weight increases or decreases by more than 3 pounds, notify .) Contact your physician if you experience:: fever over 101, Difficulty voiding, Redness or swelling, Nausea/Vomiting, Shortness of breath, Bleeding, pain uncontrolled by pain medications Exam - Constitutional Exam: Patient was awake alert and oriented to person place and situation sitting on the side of the bed in no acute distress irreg rate and rhythm Clear to auscultation bilaterally, nonlabored breathing noted Abdomen is soft nontender nondistended positive bowel sounds no organomegaly or masses appreciated Extremity exam she is warm and well-perfused no clubbing cyanosis trace to +1 chronic edema Neuro decreased sensation of the lower extremities otherwise nonfocal Patient denies any lightheadedness or dizziness. She is ambulating with a walker without any difficulty. She denies any chest pain or shortness of breath. No nausea or vomiting. She is having good oral intake. Last bowel movement was today and was without any melena or bright red blood per rectum.
--- NOTE | 2017-03-28 10:43 | Cardiology Progress Note ---
<Armida Ji E - Last Filed: 03/28/17 10:29> Assessment and Plan - Time spent with patient Time spent with patient: Greater than 30 minutes (1) Advanced age Status: Chronic Assessment and plan: SEE PLAN OF CARE LISTED BELOW Current Visit: Yes (2) Chronic pain Status: Chronic Assessment and plan: SEE PLAN OF CARE LISTED BELOW Current Visit: Yes (3) Fatigue Status: Chronic Assessment and plan: SEE PLAN OF CARE LISTED BELOW Current Visit: Yes (4) Bilateral carotid bruits Status: Acute Assessment and plan: SEE PLAN OF CARE LISTED BELOW Current Visit: Yes (5) Thyromegaly Status: Acute Assessment and plan: SEE PLAN OF CARE LISTED BELOW Current Visit: Yes (6) Atrial fibrillation Status: Chronic Assessment and plan: SEE PLAN OF CARE LISTED BELOW Current Visit: Yes (7) Uncontrolled hypertension Status: Acute Assessment and plan: SEE PLAN OF CARE LISTED BELOW Current Visit: Yes (8) Elevated troponin Status: Acute Assessment and plan: SEE PLAN OF CARE LISTED BELOW Current Visit: Yes Cardiology - PN: Subj Interval history: SEWER CLEANER: DR. MESA PCP: DR. ALCOCER, [facility] Ms. Castañeda, 86WF, presented to the emergency department March 26, 2017 with atrial fibrillation with rapid ventricular response, dizziness and chest pain. She has a history of known paroxysmal atrial fibrillation, hypertension, hypercholesterolemia, chronic pain and COPD. During the hospital stay, blood pressure medications were adjusted for better blood pressure control. She converted back to normal sinus rhythm during the hospital stay. Her chest discomfort was located in the left chest area and radiated to the left shoulder. This occurred when her heart was racing. Her troponins did increase slightly. Dr. Mesa offered the patient stress testing and/or heart catheterization. However, patient and her son, vehemently declined invasive workup or stress test. She has been offered this in the past by Dr. cota, her former employer relations representative, but declined at that time as well. In the past, patient has also not wanted anticoagulation for stroke prevention. During this hospital stay, she was challenged with therapeutic doses of Lovenox and there was no overt bleeding noted. In the past, she has been considered a "high falls risk" but she is no longer ambulating without her walker. She has not fallen greater than 1 year. Patient is agreeable for anticoagulation and she is being discharged home today on Eliquis 2.5 mg orally twice daily as her FRANKIE VASC SCORE is 4. Echocardiogram revealed EF 55%, no significant valvular abnormalities. PAP 45 mmHg. Carotid ultrasounds revealed no significant stenosis. Thyroid ultrasound revealed multinodular goiter. Patient would like to be discharged home today. I discussed with attending and they are agreeable for discharge as well. Patient has utilized oxygen during the hospital stay. She would like to have oxygen at home, I feel as if she may benefit from this. If she qualifies, we will arrange for such. Patient would like to follow with Dr. Mesa in clinic. I will give her an appointment to see Dr. Mesa in May 2017. We did make several medication adjustments for better blood pressure control. For this reason, I will also give her an appointment to see ROHIT Salinas, at [facility] [place] [facility] in approximately 1 week to evaluate her blood pressure make additional recommendations and changes as needed. Also, the following labs will be obtained at [facility] in 1 week: BMP, magnesium, CBC. She is agreeable to this approach. Recommended cardiac discharge medications include the following: Amlodipine 10 mg 1 p.o. daily Aspirin 81 mg orally daily Lasix 40 mg orally twice daily Losartan 100 mg orally daily Metoprolol tartrate 50 mg orally twice daily Eliquis 2.5 mg orally twice daily Atorvastatin 20 mg orally each evening Potassium chloride 20 mEq orally daily Prilosec 20 mg orally daily Exam (Progress Note) - Constitutional Vitals: Period Temp Pulse Resp BP Sys/Coffman Pulse Ox Last 24 Hr 97.6 F-98.5 F 53-66 18-20 136-206/64-84 95-98 Exam: General: [Appears well with no apparent distress.] [Pleasant and cooperative. ] [Appears comfortable.] HEENT: [PERRL, normocephalic, atraumatic. Mucous membranes moist. No jaundice noted. Conjunctiva moist and clear, sclerae anicteric] Neck: No JVD/HJR, no thyromegaly or lymphadenopathy noted. No carotid bruit appreciated Cardiac: [Regular rate and rhythm.] [No murmur rub or gallop.] Lungs: [Clear to auscultation without accessory muscle use to assist the respiratory pattern.] Using oxygen intermittently. Abdomen: Soft, bowel sounds normoactive. Nontender and nondistended. No abdominal bruit or thrill noted. No masses noted. Musculoskeletal: No fluid collection. Decreased range of motion is noted. Extremities: No clubbing, cyanosis noted. [ No edema noted.] Upper extremity pulses 2+. Lower extremity pulses 2+. Capillary refill less than 3 seconds. Skin: No unusual lesions or rashes. No skin breakdown appreciated. Neuro: Awake, alert and oriented 3. Moves all extremities well without hemiparesis or paralysis. No essential tremor is appreciated. Result/EKG - Labs CBC & BMP: 03/28/17 05:15 03/28/17 05:15 Lab Results: I have reviewed the past 24 hour labs Labs: Laboratory Results - last 24 hr 03/27/17 03/27/17 03/28/17 11:31 19:41 05:15 WBC 11.0 RBC 4.71 Hgb 13.5 Hct 40.7 MCV 86.4 L MCH 29 MCHC 33.2 RDW 14.5 Plt Count 364 MPV 9.7 Neut % (Auto) 68.3 Lymph % (Auto) 22.4 [place] % (Auto) 7.1 Eos % (Auto) 0.5 Baso % (Auto) 0.6 Neut # (Auto) 7.5 H Lymph # (Auto) 2.5 [place] # (Auto) 0.8 Eos # (Auto) 0.1 Baso # (Auto) 0.1 Immature Gran % 1.1 Nucleated RBC % 0.0 Immature Gran # 0.12 Nucleated RBCs # 0.00 Sodium Potassium Chloride Carbon Dioxide Anion Gap BUN Creatinine GFR Calculation BUN/Creatinine Ratio Glucose Calculated Osmolality Calcium Magnesium Total Creatine Kinase 190 166 CK-MB (CK-2) 6.6 H 5.1 H CK and CKMB Interp 3.5 3.1 Troponin I 0.530 H D 0.378 H D 03/28/17 03/28/17 05:15 05:15 WBC RBC Hgb Hct MCV MCH MCHC RDW Plt Count MPV Neut % (Auto) Lymph % (Auto) [place] % (Auto) Eos % (Auto) Baso % (Auto) Neut # (Auto) Lymph # (Auto) [place] # (Auto) Eos # (Auto) Baso # (Auto) Immature Gran % Nucleated RBC % Immature Gran # Nucleated RBCs # Sodium 143 Potassium 4.2 Chloride 106 Carbon Dioxide 26 Anion Gap 15.2 H BUN 30 H Creatinine 1.00 GFR Calculation 55 BUN/Creatinine Ratio 30.00 H Glucose 99 Calculated Osmolality 290.0 Calcium 9.1 Magnesium 2.5 H Total Creatine Kinase 110 D CK-MB (CK-2) 3.8 H CK and CKMB Interp Troponin I 0.314 H - Diagnostic Findings Procedure: Chest x-ray: report reviewed by me - EKG EKG results: interpreted by me EKG shows: sinus rhythm Specialty Discharge - Follow Up or Referrals Follow up with: Reid Serrano CFNP [Advanced Practice Nurse] - (1 week at [facility]. BMP, Mg, CBC. ) Alex Mesa MD [Physician] - (May 2017) <Alex Mesa - Last Filed: 03/28/17 13:00> Exam (Progress Note) - Constitutional Vitals: Period Temp Pulse Resp BP Sys/Coffman Pulse Ox Last 24 Hr 98 F-98.5 F 53-66 18-20 136-206/64-84 91-98 Result/EKG - Labs CBC & BMP: 03/28/17 05:15 03/28/17 05:15 Labs: Laboratory Results - last 24 hr 03/27/17 03/28/17 03/28/17 19:41 05:15 05:15 WBC 11.0 RBC 4.71 Hgb 13.5 Hct 40.7 MCV 86.4 L MCH 29 MCHC 33.2 RDW 14.5 Plt Count 364 MPV 9.7 Neut % (Auto) 68.3 Lymph % (Auto) 22.4 [place] % (Auto) 7.1 Eos % (Auto) 0.5 Baso % (Auto) 0.6 Neut # (Auto) 7.5 H Lymph # (Auto) 2.5 [place] # (Auto) 0.8 Eos # (Auto) 0.1 Baso # (Auto) 0.1 Immature Gran % 1.1 Nucleated RBC % 0.0 Immature Gran # 0.12 Nucleated RBCs # 0.00 Sodium 143 Potassium 4.2 Chloride 106 Carbon Dioxide 26 Anion Gap 15.2 H BUN 30 H Creatinine 1.00 GFR Calculation 55 BUN/Creatinine Ratio 30.00 H Glucose 99 Calculated Osmolality 290.0 Calcium 9.1 Magnesium 2.5 H Total Creatine Kinase 166 CK-MB (CK-2) 5.1 H CK and CKMB Interp 3.1 Troponin I 0.378 H D 03/28/17 03/28/17 05:15 11:26 WBC RBC Hgb Hct MCV MCH MCHC RDW Plt Count MPV Neut % (Auto) Lymph % (Auto) [place] % (Auto) Eos % (Auto) Baso % (Auto) Neut # (Auto) Lymph # (Auto) [place] # (Auto) Eos # (Auto) Baso # (Auto) Immature Gran % Nucleated RBC % Immature Gran # Nucleated RBCs # Sodium Potassium Chloride Carbon Dioxide Anion Gap BUN Creatinine GFR Calculation BUN/Creatinine Ratio Glucose Calculated Osmolality Calcium Magnesium Total Creatine Kinase 110 D 97 CK-MB (CK-2) 3.8 H 3.0 CK and CKMB Interp Troponin I 0.314 H 0.217 H D
[2017-03-28 12:16] LABS: Troponin I Only 0.217 NG/ML (0.00-0.045)
[2017-03-28 16:30] VITALS: BP 142/63
[2017-03-28] MEDS ORDERED: ATORVASTATIN 20 MG TABLET PO SCH (21:00)
[2017-03-28] MEDS ORDERED: APIXABAN 2.5 MG TABLET PO SCH (21:00)
[2017-03-29] MEDS ORDERED: ASPIRIN EC 81 MG TABLET PO SCH (09:00)
== END 2017-03-28 17:30 | disposition home health service (06) | DRG 310 ==
LOC: EDBD → EDUNIT# → N.EDINP 19:26 → N.ED 19:26 → SUATTDRO 21:13 → N.TELES 22:15
PROVIDERS: ADMIT Internal Medicine; ATTEND Pediatrics